=== PATIENT | female | born 1985 | race Caucasian/White ===

== ENCOUNTER 2016-12-08 00:59 | Emergency (ER) | payer SELFPAY ==
--- NOTE | 2016-12-08 01:23 | PDOC ---
Female Problem HPI - General Chief Complaint: Genitourinary Complaint Stated Complaint: UTI Date Seen by Provider: 12/08/16 Time Seen by Provider: 01:10 Source: POSITIVE: Patient Exam Limitations: POSITIVE: No limitations Nurse's Notes Reviewed & Considered: Yes - History of Present Illness Initial Comments: The patient is a 31-year-old female who presents to the emergency department with concern about possible UTI. She states that starting today she has had onset of some left-sided flank pain, lower abdominal pain and spasm associated with urinary urgency and frequency. She has had multiple urinary tract infections since having her appendix out several years ago. She states her current symptoms are similar to previous infection she has had before. She denies any associated fever. She has had some subjective chills. She denies nausea or vomiting or any other associated complaints. She is currently driving from [place] to [place], [place] to visit her dad. - Patient Home Medications Home Medications: Home Medications Omeprazole 40 mg PO 12/08/16 SUMAtriptan Inj [Imitrex Inj] 6 mg SQ 12/08/16 Sumatriptan Succinate [Imitrex] 12/08/16 - Patient Allergies Allergies/Adverse Reactions: Allergies Allergy/AdvReac Type Severity Reaction Status Date / Time amoxicillin Allergy ITCHING Verified 12/08/16 01:15 codeine Allergy ITCHING Verified 12/08/16 01:15 levetiracetam [From [facility]] Allergy ITCHING Verified 12/08/16 01:15 NSAIDS (Non-Steroidal Allergy ITCHING Verified 12/08/16 01:15 Anti-Inflamma tramadol Allergy ITCHING Verified 12/08/16 01:15 Past Medical History Past Medical History Reviewed: Other (please comment) (Written nursing documentation reviewed) ROS - Limitations ROS Limitations: No Limitations Constitution: REPORTS: Chills. DENIES: Fever Cardiovascular: REPORTS: Denies Cardiac Symptoms Respiratory: REPORTS: Denies Resp Symptoms Neurological: REPORTS: Denies Neuro Symptoms Female Genitourinary Exam - General Appearance General Appearance: POSITIVE: Alert, Cooperative, No Acute Distress - HEENT HEENT: POSITIVE: Head Inspection Nml - Neck Neck: POSITIVE: Normal Inspection - Respiratory Respiratory: POSITIVE: No Respiratory Distress, Breath Sounds Normal - Cardiovascular Cardiovascular: POSITIVE: Regular Rate and Rhythm, Heart Sounds Normal - Abdomen Abdomen: POSITIVE: Soft, Other (Suprapubic tenderness without guarding or rebound tenderness) - Back Back: POSITIVE: CVA Tenderness (L). NEGATIVE: CVA Tenderness (R) - Skin Skin: POSITIVE: Intact - Extremities Extremity: Normal ROM: (All Extremities), Normal Inspection: (All Extremities) Female Genitourinary Progress - Results Reviewed by me Lab Results Reviewed: Yes Lab Results:: Laboratory Results 12/08/16 Range/Units 00:59 Ur Collection Type Clean catch urine Urine Color Yellow Urine Clarity Clear (CLEAR) Urine pH 6.0 (5.0-8.5) Ur Specific [place] 1.015 (1.005-1.030) U Specif Grav (Refrac) 1.015 Urine Protein Negative (NEG) mg/dl Urine Glucose (UA) Negative (NEG) mg/dL Urine Ketones Negative (NEG) Urine Occult Blood Small H (NEG) Urine Nitrate Negative (NEG) Urine Bilirubin Negative (NEG) Urine Urobilinogen 0.2 (0.2) EU/dL Ur Leukocyte Esterase Negative (NEG) Urine RBC None (NONE) /hpf Urine WBC None (NONE) Ur Squamous Epith Cells Few (NONE) Ur Renal Epithelial Cell None (NONE) Urine Crystals None Urine Bacteria None (NONE) Urine Casts None (NONE) Urine Mucus None (NONE) Urine Trichomonas None (NONE) Urine Yeast None (NONE) Ur Culture Indicated? Culture not set Urine HCG, Qual Negative - Patient's Progress MDM / ED Course: She presents to the ER with symptoms consistent with urinary tract infection and bladder spasm. She has had similar symptoms in the past associated with UTIs. Her urinalysis however does not reveal any evidence of infection. These findings were discussed with the patient. Elected to treat empirically with a short course of Cipro 500 mg twice a day for 3 days. In addition she was given Pyridium 200 mg every 8 hours as needed for urinary symptoms. She is advised to push fluids. She'll return to the emergency room if she develops any increased pain, worsening or change in symptoms. She is advised follow-up with primary care if no improvement in 2-3 days. - Consult Counseled: POSITIVE: Patient, RE: Lab Results, RE: DX, RE: Need for F/U Patient Care Time - Estimated PCT Patient Care Time (In Minutes): 15 Vital Signs - Recent Vital Signs Vital Signs: Vital Signs (Last 8 hours) Temp Pulse Resp BP Pulse Ox 08/16/17 01:00 98.3 F 99 16 133/95 96 - VS Reviewed Vital Signs Reviewed: Yes Discharge Clinical Impression: Dysuria Discharge Disposition: Discharged to Home Condition: Stable Patient Instructions Given at Discharge: Dysuria (ED) Additional Instructions: The urinalysis does not show any clear-cut evidence of infection. Your symptoms are consistent with a urinary tract infection with associated bladder spasm. Will treat with short course of antibioticsCipro 500 mg twice a day for 3 days. Pyridium 200 mg, 3 times a day for 2 days. Push fluids. Return to the emergency room if increased pain, vomiting, worsening or change in symptoms. Recommend follow-up with primary care if no improvement in symptoms in 3-5 days. Follow Up With: NONE,NONE [Primary Care Provider] -
[2016-12-08 01:26] VITALS: RESP 16; TEMP 98.3
[2016-12-08 01:31] LABS: BILIRUBIN,URINE NEGATIVE (NEG); CLARITY,URINE CLEAR (CLEAR); COLOR,URINE YELLOW; GLUCOSE, URINE (UA) NEGATIVE (NEG); NITRATE,URINE NEGATIVE (NEG); OCCULT BLOOD,URINE SMALL (NEG); PROTEIN,URINE NEGATIVE (NEG); UROBILINOGEN,URINE 0.2 EU/dL (0.2)
[2016-12-08 01:34] LABS: URINE SPECIFIC GRAVITY - MAN 1.015
[2016-12-08 01:35] LABS: SQUAMOUS EPITHELIAL CELL,UR FEW; URINE SAMPLE TYPE CLEAN CATCH URINE
[2016-12-08] MEDS ORDERED: Phenazopyridine Tab 200 MG TAB PO SCH (01:45)
[2016-12-08] MEDS ORDERED: CIPROFLOXACIN 500 MG TABLET PO SCH (01:45)
== END 2016-12-08 02:00 | disposition home or self-care (01) ==
LOC: ER 00:59
DX: R30.0 Dysuria (principal); M54.89 Other dorsalgia; R10.32 Left lower quadrant pain
CPT/HCPCS: 81001; 81003; 84703; 99282